=== PATIENT | female | born 1955 | race Caucasian/White ===

== ENCOUNTER 2020-09-16 10:42 | Observation (INO) | payer BC ==
[2020-09-16 11:14] LABS: CHLORIDE,CL 91 mEq/L (98-106); SODIUM,NA 130 mEq/L (136-145)
[2020-09-16] MEDS ORDERED: Sodium Chloride 0.9% 2,000 ML IV ONE (11:15)
[2020-09-16 13:48] LABS: CHLORIDE,CL 98 mEq/L (98-106); SODIUM,NA 132 mEq/L (136-145)
[2020-09-16] MEDS ORDERED: Enoxaparin 30 MG/0.3 ML Syringe SUBCUT SCH (14:30)
[2020-09-16] MEDS ORDERED: Pantoprazole 40 MG Vial IVPUSH ONE (14:30)
[2020-09-16] MEDS: Sodium Chloride 0.9% 1,000 ML IV SCH ×2 (15:45→23:29)
[2020-09-17] MEDS ORDERED: Non-Formulary Medication 1 Each (Rosuvastatin [Crestor] 10 MG Tablet) PO SCH (08:00)
[2020-09-17] MEDS: Sodium Chloride 0.9% 1,000 ML IV SCH (08:02)
[2020-09-17] MEDS ORDERED: Pantoprazole 40 MG Vial IV SCH (08:15)
[2020-09-17 13:18] VITALS: BP 102/52; PULSE 62
--- NOTE | 2020-09-20 07:51 | PCM.DCSUM1 ---
Discharge Summary - Hospital Course HPI Initial Comments: Lita is a 65 yo female who was admitted to the hospital yesterday secondary to dehydration. She had been having watery, multiple bouts of diarrhea since Sunday. Patient normally has diarrhea after having a colectomy but since Sunday it had gotten a lot worse. On admission, she was hypotensive and weak. Diagnosis: Stroke: No - Discharge Data Discharge Date: 09/17/20 Discharge Disposition: Home, Self-Care 01 Condition: Good - Referral to Home Health Primary Care Physician: Sarina Arvizu PA-C - Discharge Diagnosis/Problem(s) (1) Elevated serum creatinine SNOMED Code(s): 230669701 ICD Code: R79.89 - OTHER SPECIFIED ABNORMAL FINDINGS OF BLOOD CHEMISTRY Status: Acute (2) Acute diarrhea SNOMED Code(s): 646388196 ICD Code: R19.7 - DIARRHEA, UNSPECIFIED Status: Acute (3) Dehydration SNOMED Code(s): 56496891 ICD Code: E86.0 - DEHYDRATION Status: Acute - Patient Instructions Diet: GI Soft/Low Residue/Low Fiber - Discharge Plan Home Medications: Home Meds Calcium Carbonate [Calcium] 1 tab PO DAILY 09/16/20 [History] Cholecalciferol (Vitamin D3) [Vitamin D3] 1,000 units PO DAILY 09/16/20 [History] Losartan [Cozaar] 25 mg PO DAILY 09/16/20 [History] Rosuvastatin [Crestor] 10 mg PO DAILY 09/16/20 [History] Ubidecarenone [COQ-10] 50 mg PO DAILY 09/16/20 [History] Patient Handouts: Acute Kidney Injury, Adult, Rehydration, Adult Referrals: Sarina Arvizu PA-C [Primary Care Provider] - 09/24/20 - Discharge Summary/Plan Comment DC Time >30 min.: Yes Discharge Summary/Plan Comment: Lita is doing well at this time and ready to go home. Discussed fluid intake and encouraging increasing water, Gatorade, Powerade, etc... She will follow up with Sarina Arvizu in 1 week, advised to return sooner if any concerns. No changes in medications. - General Info Date of Service: 09/17/20 Subjective Update: Lita is in good spirits this morning and states she is feeling 100% better. States she hasn't had multiple bouts of diarrhea anymore and feels her bowel habits are returning to normal. She has been drinking water and admits she hasn't been very adamant about fluids in the past, which she voiced she needs to change. - Review of Systems General: Denies: Fever, Weakness, Fatigue HEENT: Reports: No Symptoms Pulmonary: Reports: No Symptoms Cardiovascular: Reports: No Symptoms Gastrointestinal: Denies: Abdominal Pain, Decreased Appetite, Diarrhea, Hematochezia, Nausea, Vomiting Genitourinary: Reports: No Symptoms Musculoskeletal: Reports: No Symptoms Skin: Reports: No Symptoms Neurological: Reports: No Symptoms Psychiatric: Reports: No Symptoms - Patient Data Vitals - Most Recent: Last Vital Signs Temp 97.4 F 09/17/20 12:00 Pulse 62 09/17/20 12:00 Resp 20 09/17/20 12:00 BP 102/52 L 09/17/20 12:00 Pulse Ox 99 09/17/20 12:00 Weight - Most Recent: 213 lb 11.2 oz Med Orders - Current: Current Medications Discontinued Medications Enoxaparin Sodium (Enoxaparin 30 Mg/0.3 Ml Syringe) 30 mg SUBCUT Q24H [facility] Sodium Chloride (Normal Saline) 2,000 mls @ 999 mls/hr IV ONETIME ONE Stop: 09/16/20 13:15 Last Admin: 09/16/20 11:25 Dose: 999 mls/hr Documented by: Sodium Chloride (Normal Saline) 1,000 mls @ 125 mls/hr IV ASDIRECTED [facility] Last Admin: 09/17/20 08:02 Dose: 125 mls/hr Documented by: Non-Formulary Medication (Rosuvastatin [Crestor]) 10 mg PO DAILY [facility] Pantoprazole Sodium (Pantoprazole 40 Mg Vial) 40 mg IVPUSH ONETIME ONE Stop: 09/16/20 14:31 Last Admin: 09/16/20 15:45 Dose: 40 mg Documented by: Pantoprazole Sodium (Pantoprazole 40 Mg Vial) 40 mg IV Q12H [facility] Last Admin: 09/17/20 10:29 Dose: 40 mg Documented by: - Exam General: Reports: Alert, Oriented, Cooperative, No Acute Distress Lungs: Reports: Clear to Auscultation, Normal Respiratory Effort Cardiovascular: Reports: Regular Rate, Regular Rhythm GI/Abdominal Exam: Normal Bowel Sounds, Soft, Non-Tender, No Organomegaly, No Distention, No Mass Extremities: Normal Inspection, No Pedal Edema Skin: Reports: Warm, Dry, Intact Psy/Mental Status: Reports: Alert, Normal Affect, Normal Mood
== END 2020-09-17 13:55 | disposition home or self-care (01) ==
LOC: CC.FCMC 10:42 → CC.MS 10:42 → UNDOADMOB 14:08 → CC.MS 14:26
PROVIDERS: ADMIT Physician Assistant Medical; ATTEND Family Medicine
DX: R19.7 Diarrhea, unspecified (principal); R55 Syncope and collapse; R53.1 Weakness; Z90.49 Acquired absence of other specified parts of digestive tract; Z88.8 Allergy status to other drugs, medicaments and biological substances; Z79.899 Other long term (current) drug therapy; Z98.890 Other specified postprocedural states
CPT/HCPCS: 36415; 80048; 80053; 81001; 81003; 83735; 85025; 86140; 87045; 87046; 87493; 96374; 96376; C9113; G0378; J7030